=== PATIENT | female | born 1985 | race Caucasian/White ===

== ENCOUNTER 2019-09-16 13:38 | Inpatient (IN) ==
[2019-09-16] MEDS ORDERED: NICOTINE GUM BUCCAL PRN (14:47)
[2019-09-16] MEDS ORDERED: DESYREL PO PRN (14:47)
[2019-09-16] MEDS ORDERED: SENOKOT PO PRN (14:47)
[2019-09-16] MEDS ORDERED: TUBERSOL ID ONE (14:47)
[2019-09-16] MEDS ORDERED: NICODERM PATCH TD PRN (14:47)
[2019-09-16] MEDS ORDERED: ZOFRAN IM PRN (14:47)
[2019-09-16] MEDS ORDERED: ZOFRAN ODT PO PRN (14:47)
[2019-09-16] MEDS ORDERED: DULCOLAX PR PRN (14:47)
[2019-09-16] MEDS ORDERED: ZOFRAN IV PRN ×2 (14:47→17:03)
[2019-09-16] MEDS ORDERED: D5W 1,000 ML IV PRN (14:47)
[2019-09-16] MEDS ORDERED: SEROQUEL PO PRN (14:47)
[2019-09-16] MEDS ORDERED: IMODIUM PO PRN ×2 (14:47)
[2019-09-16] MEDS ORDERED: PHENOBARBITAL IV PRN (14:47)
[2019-09-16] MEDS ORDERED: MOTRIN PO PRN (14:47)
[2019-09-16] MEDS ORDERED: MAALOX PLUS LIQUID PO PRN (14:47)
[2019-09-16 15:15] LABS: URINE SOURCE CLEAN CATCH
[2019-09-16 15:25] LABS: HEMATOCRIT 34.2 % (37.0-47.0); MCH 26.6 PG (27-31); MCHC 32.2 g/dL (33-37); MCV 82.8 FL (81-99); MPV 11.5 FL (7.4-10.4); RBC 4.13 XMIL (4.2-5.4); RDW 13.6 % (11.5-14.5); WBC 14.74 X1000 (4.8-10.8)
[2019-09-16 15:35] LABS: BILIRUBIN URINE NEGATIVE (NEGATIVE); BLOOD URINE NEGATIVE (NEGATIVE); CLARITY CLEAR (CLEAR); COLOR YELLOW; GLUCOSE URINE NEGATIVE (NEGATIVE); KETONE URINE TRACE mg/dL (NEGATIVE); LEUKOCYTES URINE 2+ (NEGATIVE); NITRITE URINE NEGATIVE (NEGATIVE); PROTEIN URINE 1+(30 mg/dL) mg/dL (NEGATIVE); UROBILINOGEN URINE NORMAL
[2019-09-16 15:41] LABS: AMYLASE 65 U/L (20-200); LIPASE 30 U/L (13-60)
[2019-09-16 15:42] LABS: INR 0.85
[2019-09-16 15:44] LABS: AGAP 9; ALBUMIN 2.9 g/dL (3.5-5.0); ALKALINE PHOSPHATASE 282 U/L (32-104); BUN 5 mg/dL (8-22); CALCIUM 9.1 mg/dL (8.8-10.2); CHLORIDE 107 mmol/L (98-107); COSMO 275; CREATININE 0.7 mg/dL (0.5-0.9); ESTIMATED GFR > 60; GLUCOSE 144 mg/dL (70-104); GOT 16 U/L (10-30); GPT 12 U/L (10-36); POTASSIUM 3.8 mmol/L (3.5-5.1); SODIUM 138 mmol/L (136-145); TCO2 22 mmol/L (25-35); TOTAL PROTEIN 6.3 g/dL (6.3-8.3)
[2019-09-16 16:21] LABS: URINE BACTERIA 1+ /HFP; URINE CAST NONE SEEN /LPF; URINE CRYSTAL NONE SEEN /HPF; URINE EPITHELIAL CELLS >10 /HPF (<10); URINE RBC <10 /HPF (<10); URINE SMALL ROUND CELLS TRANSITIONAL PRESENT; URINE TRICHOMONAS PRESENT; URINE WBC 20-40 /HPF (<10); URINE YEAST NONE SEEN /HPF
[2019-09-16] MEDS ORDERED: TYLENOL PO PRN (17:03)
[2019-09-16] MEDS: LIBRIUM PO PRN (17:38)
[2019-09-16] MEDS: ZOSYN 3.375 GM in NS 50 ML IV SCH (17:39)
[2019-09-16 17:44] LABS: UR AMPHETAMINES QUAL PRESUMPTIVE POSITIVE (NONE DETECT); UR BARBITUATES QUAL NONE DETECTED (NONE DETECT); UR COCAINE QUAL NONE DETECTED (NONE DETECT); UR METHADONE QUAL NONE DETECTED (NONE DETECT); UR METHAMPHETAMINE QUAL PRESUMPTIVE POSITIVE (NONE DETECT); UR OPIATES QUAL NONE DETECTED (NONE DETECT); UR OXYCODONE QUAL NONE DETECTED (NONE DETECT); UR PCP QUAL NONE DETECTED (NONE DETECT)
[2019-09-16 17:45] LABS: UR BENZODIAZEPIN QUAL NONE DETECTED (NONE DETECT); UR CANNABINOIDS QUAL PRESUMPTIVE POSITIVE (NONE DETECT); UR PROPOXYPHENE QUAL NONE DETECTED (NONE DETECT); UR TCA QUAL NONE DETECTED (NONE DETECT)
--- NOTE | 2019-09-16 20:36 | Diag Imaging Result Doc PS360 ---
US OBS COMPLETE > 14 WKS - 09/16/2019 INDICATION: Gestational age, no care TECHNIQUE: COMPARISON: None FINDINGS: There is a single intrauterine . Positioning is vertex. Estimated gestational age is 37 weeks two days +/- 16 days. Estimated delivery date is 10/05/2019. Placenta is posterior and appears normal. Normal anatomy and movement. cardiac activity is 147 bpm. Normal amniotic fluid. The cervix is closed. Maternal structures are normal. IMPRESSION: Intrauterine with no complication. Electronically signed by Kp Sanabria 09/16/2019 8:34 PM
[2019-09-16] MEDS ORDERED: NORCO-5 PO ONE (21:08)
[2019-09-16 21:39] LABS: RAPID HIV PRESUMPTIVE NEGATIVE
[2019-09-16 21:54] LABS: RPR NON-REACTIVE (NONREACTIVE)
[2019-09-16 22:33] LABS: RUBELLA SCREEN NON IMMUNE (IMMUNE)
[2019-09-17] MEDS: ZOSYN 3.375 GM in NS 50 ML IV SCH ×4 (00:41→19:44)
[2019-09-17] MEDS: TYLENOL PO PRN ×2 (01:55→08:10)
[2019-09-17] MEDS ORDERED: PROTONIX PO SCH (07:00)
[2019-09-17] MEDS ORDERED: VITAMIN B-1 PO SCH (09:00)
[2019-09-17] MEDS ORDERED: THERA M PLUS PO SCH (09:00)
[2019-09-17] MEDS ORDERED: FOLIC ACID PO SCH (09:00)
[2019-09-17] MEDS: LIBRIUM PO PRN (14:44)
[2019-09-17 16:05] LABS: HIV ANTIBODY SCREEN SEE COMMENTS
[2019-09-17] MEDS ORDERED: DULCOLAX PR PRN (18:53)
[2019-09-17] MEDS ORDERED: ZOFRAN ODT PO PRN (18:54)
[2019-09-17] MEDS ORDERED: TYLENOL PO PRN (18:54)
[2019-09-17] MEDS ORDERED: ZOFRAN IV PRN (18:54)
[2019-09-17 19:12] LABS: BASO# 0.01 X1000 (0.0-0.2); BASO% 0.1 % (0.0-0.8); EOS# 0.09 X1000 (0.0-0.7); EOS% 0.9 % (0.0-10.0); HEMATOCRIT 32.2 % (37.0-47.0); HEMOGLOBIN 10.2 g/dL (12.0-16.0); IMM GRAN# 0.06 X1000 (0.0-0.04); IMM GRAN% 0.6 % (0.0-0.5); LYMPH# 1.66 X1000 (1.2-3.4); LYMPH% 15.8 % (20.5-51.1); MCH 26.4 PG (27-31); MCHC 31.7 g/dL (33-37); MCV 83.4 FL (81-99); MONO# 0.71 X1000 (0.11-0.59); MONO% 6.8 % (1.7-9.3); MPV 11.6 FL (7.4-10.4); NEUT# 7.95 X1000 (1.4-6.5); NEUT% 75.8 % (42.2-75.2); PLT 196 X1000 (130-400); RBC 3.86 XMIL (4.2-5.4); WBC 10.48 X1000 (4.8-10.8)
[2019-09-17 19:22] LABS: HEMOGLOBIN A1C 5.5 % (4.8-6.0)
[2019-09-17 19:31] LABS: AGAP 12; ALB/GLOB RATIO 0.7; ALBUMIN 2.3 g/dL (3.5-5.0); ALKALINE PHOSPHATASE 243 U/L (32-104); BUN 7 mg/dL (8-22); CALCIUM 8.6 mg/dL (8.8-10.2); CHLORIDE 105 mmol/L (98-107); COSMO 275; CREATININE 0.7 mg/dL (0.5-0.9); ESTIMATED GFR > 60; GLUCOSE 114 mg/dL (70-104); GOT 15 U/L (10-30); GPT 12 U/L (10-36); LDH 140 U/L (135-214); POTASSIUM 3.7 mmol/L (3.5-5.1); SODIUM 138 mmol/L (136-145); TCO2 21 mmol/L (25-35); TOTAL BILIRUBIN 0.24 mg/dL (0.20-1.00); TOTAL PROTEIN 5.7 g/dL (6.3-8.3); URIC ACID 4.4 mg/dL (2.4-5.7)
[2019-09-17] MEDS ORDERED: MIRALAX PO SCH (21:00)
[2019-09-17 21:10] LABS: PROTEIN CREAT RATIO 0.4; UR CREAT RANDOM 102.1 mg/dL (11-20); UR PROT RANDOM 35.9 mg/dL
[2019-09-17] MEDS ORDERED: BENADRYL PO ONE (22:13)
--- NOTE | 2019-09-17 22:35 | HISTORY AND PHYSICAL ---
CHIEF COMPLAINT: "I am detoxing off marijuana and meth." HISTORY OF PRESENT ILLNESS: A 34-year-old G5, P3-0-1-3 at 37 weeks and 3 days who presented to [facility] on 09/17 time for assistance with detoxing off of methamphetamines and marijuana. She has had no care this . She is dated by an ultrasound performed on 09/16. She states she has been using marijuana for approximately 15 years, but recently started using methamphetamines in June due to her mother's and multiple stressors. She states she did not know she was in June and her last menstrual period was June 10. Upon admission to the hospital on 09/16, blood pressures were initially elevated at 141 to 170s over 80s to 90s. At this time, she was agitated. She last notes using methamphetamines on Saturday. Decision was made on 09/17 to transfer patient to [facility] for antepartum care and testing. She currently denies any vaginal bleeding, contractions, or leaking fluid. She endorses movement. She does complain of lower back pain and right-sided tooth abscess. She was started on antibiotics on 09/16 for the tooth abscess. She does have a history of preeclampsia in her 1st . She currently denies any headaches, blurry vision, chest pain, shortness of breath, right upper quadrant pain or severe nausea or vomiting. OBSTETRIC HISTORY: G1 spontaneous vaginal delivery at 34 weeks, medical induction of labor for preeclampsia, male, 4 pounds 10 ounces (2002). G2 was a spontaneous at approximately 10 weeks. No D and C was performed (2003). G3, spontaneous vaginal delivery at 36 weeks, complicated by labor and rupture of membranes, female, 5 pounds 11 ounces (2004). G4, spontaneous vaginal delivery at 36 weeks, complicated by rupture of membranes, male, 4 pounds 10 ounces (2014). G5 equals current with no care and complicated by illicit drug use. PAST MEDICAL HISTORY: Tobacco abuse. SURGICAL HISTORY: Left knee surgery in 2017. MEDICATIONS: vitamin. ALLERGIES: No known drug allergies. FAMILY HISTORY: Positive for father with hypertension, mother is . SOCIAL HISTORY: Smokes approximately 1/2 pack per day. She denies any alcohol use. She last used methamphetamines on Saturday. She also uses marijuana frequently. REVIEW OF SYSTEMS: Negative except as mentioned in HPI.Vital Signs: Temperature 98.0 degrees, blood pressure 104/70, heart rate 97, O2 saturation 99%. Respiratory rate 20. heart tracings 140/moderate variability/positive accelerations/no decelerations. Tocometer negative for contractions. LABORATORY DATA: White blood cell count 14.7, hemoglobin 11, hematocrit 34.2, platelets 223,000. Sodium 138, potassium 3.8, chloride 107, CO2 22, BUN 5, creatinine 0.7, random blood glucose 144, AST 16, ALT 12. RPR negative. HIV negative. Blood type O positive/negative antibody screen, rubella nonimmune. Urinalysis 2+ white blood cells, greater than 10 epis, 1+ protein. Urinary drug screen positive for amphetamines, methamphetamines, cannabis. Abdominal ultrasound on 09/16: There is a single intrauterine . Positioning is vertex. Estimated gestational age is 37 weeks and 2 days +/-16 days. Estimated delivery date is 10/05/2019. Placenta is posterior and appears normal. Normal anatomy and movement. cardiac activity is 147 beats per minute. Normal amniotic fluid. The cervix is closed. Maternal structures are normal. PHYSICAL EXAM: GENERAL: Alert and in mild distress secondary to stress, the patient is tearful. HEENT: Right facial swelling, right cheek tender to palpation and warm to the touch. Abscess noted above right molar. HEART: Regular rate and rhythm. LUNGS: No respiratory distress. Clear to auscultation bilaterally. ABDOMEN: Soft, gravid, and nontender. No rebound or guarding. No right upper quadrant tenderness. EXTREMITIES: No clubbing, cyanosis, or edema. 1+ DTR bilateral patella. ASSESSMENT/PLAN: A 34-year-old G4, now G5, P3-0-1-3 at 37 weeks and 3 days with elevated blood pressure, status post methamphetamine use and subsequent withdrawal. No care, right tooth abscess, advanced maternal age, tobacco abuse. 1. Maternal status stable, category 1 tracing. 2. Status post transfer downtown for monitoring and monitoring of the patient's blood pressure. We will draw preeclampsia labs and monitor blood pressure closely. Blood pressure currently normotensive. The patient denies any signs or symptoms of preeclampsia. Elevated blood pressure upon arrival, likely secondary to recent methamphetamine use. 3. Zosyn day #2 for tooth abscess. We will continue and plan to switch to p.o. antibiotics. Patient currently afebrile. We will treat pain with Tylenol and ice pack to right cheek. 4. We will check hemoglobin A1c due to no care and elevated blood glucose on arrival on 09/16. labs have been ordered. Gonorrhea, chlamydia, and hepatitis C are still pending. 5. Social service consult due to drug use during . cc: Karlos Ledezma MD MTDD
[2019-09-18] MEDS: ZOSYN 3.375 GM in NS 50 ML IV SCH ×3 (01:16→15:03)
[2019-09-18] MEDS ORDERED: PROTONIX PO SCH (07:00)
[2019-09-18 07:36] LABS: HEMATOCRIT 33.9 % (37.0-47.0); MCH 27.4 PG (27-31); MCHC 32.4 g/dL (33-37); MCV 84.5 FL (81-99); MPV 11.7 FL (7.4-10.4); RBC 4.01 XMIL (4.2-5.4); RDW 14.2 % (11.5-14.5); WBC 9.95 X1000 (4.8-10.8)
[2019-09-18 08:11] LABS: AGAP 10; ALB/GLOB RATIO 0.6; ALBUMIN 2.4 g/dL (3.5-5.0); ALKALINE PHOSPHATASE 267 U/L (32-104); BUN 7 mg/dL (8-22); CALCIUM 8.7 mg/dL (8.8-10.2); CHLORIDE 104 mmol/L (98-107); COSMO 263; CREATININE 0.7 mg/dL (0.5-0.9); ESTIMATED GFR > 60; GLUCOSE 77 mg/dL (70-104); GOT 18 U/L (10-30); GPT 12 U/L (10-36); POTASSIUM 4.3 mmol/L (3.5-5.1); SODIUM 133 mmol/L (136-145); TCO2 19 mmol/L (25-35); TOTAL BILIRUBIN 0.33 mg/dL (0.20-1.00); TOTAL PROTEIN 6.1 g/dL (6.3-8.3)
[2019-09-18] MEDS ORDERED: FOLIC ACID PO SCH (09:00)
[2019-09-18] MEDS ORDERED: THERA M PLUS PO SCH (09:00)
[2019-09-18 09:13] LABS: HEPATITIS B SURFACE ANTIGEN SEE COMMENTS
--- NOTE | 2019-09-18 09:47 | PROGRESS NOTE ---
DATE: 09/17/2019 SUBJECTIVE: Patient notes that her facial swelling is much improved. Denies fevers, chills. Denies any abdominal pain. Denies any bleeding. Denies chest pain, palpitations. PHYSICAL EXAMINATION: Vital Signs: Reviewed. She is afebrile. Blood pressure is elevated this morning at 140/90. Cardiovascular: Regular rate. Chest: Clear, nonlabored. Abdomen: Soft, gravid, nontender. Extremities: Moves all extremities. ASSESSMENT: 1. Amphetamine use and abuse. 2. Dental abscess improved. 3. Hypertension. 4. Third trimester . PLAN: We are going to consult [facility] as the patient is 37 weeks with no care. We will continue antibiotics. Her withdrawal has improved and certainly from our standpoint could be discharged home on oral antibiotics for her dental abscess. cc: Karlos Ledezma MD
--- NOTE | 2019-09-18 11:09 | HISTORY AND PHYSICAL ---
CHIEF COMPLAINT: Nausea and vomiting. HISTORY OF PRESENT ILLNESS: The patient is a 34-year-old female, who [facility] noting that she has been abusing amphetamines and that she is currently . She states she has not had any care. She states she did realize until just recently that she was . She also notes that she has had some swelling and pain on the right side of her face that started 2 days ago and has been dramatically worsening over the past 24 hours. She states it hurts to swallow, hurts to eat. SOCIAL HISTORY: The patient is single. She is unemployed. Lives at home in [place]. PAST MEDICAL HISTORY: Denies any history of high blood pressure. Does note that she fainted for an unknown reason, in 2013. Significant for hypertension, although she notes she has not been taking medication for it in a long time. She does have a history of anxiety, depression, and history of gallstones. She had a history of syncope in 2003, but was never given a true diagnosis of the cause. FAMILY HISTORY: Noncontributory. REVIEW OF SYSTEMS: CIWA score is elevated to 29 secondary to nausea, occasional vomiting, anxiety, restlessness, headaches, tremors, sweating. Denies any fevers or chills. Denies any abdominal pain. Denies dysuria, frequency, or urgency. Denies constipation, melena, hematochezia. Notes that she is , but she is unsure of how far along. Denies other GI or issues. Denies any swelling of her lower extremities. Denies headaches, blurred vision, change in vision. Denies any focalized numbness, tingling, or weakness. SUBSTANCE ABUSE HISTORY: The patient was in methadone treatment from April 2015 to December of 2016. Reports no other drug use while she was on methadone. States that she started drinking alcohol at 12, rarely uses, has not used since December of 2018. Started marijuana at 12, currently uses daily her whole life. Started antidepressants at 15. States she rarely uses. Took Xanax a couple of weeks ago. Started stimulants at 34. Notes that she has been snorting or smoking meth 3 to 4 times a day for the past 4 months. Started opiates at 22. Took Percocet for several years and then went to a methadone clinic. She currently is off methadone. Started nicotine at 13, currently smokes 1 to 1-1/2 packs a day. PHYSICAL EXAMINATION: VITAL SIGNS: Vital signs are reviewed. She is awake, alert. She is in no current respiratory distress. Pleasant to talk with. HEENT: Normocephalic. NECK: Supple. CARDIOVASCULAR: Regular rate. CHEST: Clear. ABDOMEN: Soft. EXTREMITIES: Moves all extremities. SKIN: The right side of her lower jaw is swollen, tender, warm to the touch. ASSESSMENT: 1. Dental abscess. 2. Nausea and vomiting. 3. of undetermined trimester. We are going to check an ultrasound and will progress from there. 4. Substance abuse with stimulants, meth. We are going to monitor for withdrawal. 5. Hypertension, unclear of what the patient's baseline blood pressure is as she notes she has been told in the past she has high blood pressure but has not been treating it. Blood pressures are minimally elevated, currently in the 140 to 145 range. PLAN: We are going to admit the patient to the hospital. We will monitor her blood pressures, check an ultrasound due to , place her on antibiotics, and will follow. cc: Karlos Ledezma MD
[2019-09-18 12:37] LABS: HEPATITIS PROFILE ACUTE SEE COMMENTS
[2019-09-18 17:38] VITALS: BP 117/77
[2019-09-18] MEDS ORDERED: BENADRYL PO SCH (21:00)
== END 2019-09-18 15:45 | disposition left against medical advice (07) | DRG 833 ==
LOC: P.DIRADM 13:38 → P.MEDSURG 13:50 → LD 09-17 18:10
PROVIDERS: ADMIT Family Medicine; ATTEND Student in an Organized Health Care Education/Training Program